=== PATIENT | female | born 1935 | race Caucasian/White ===

== ENCOUNTER 2017-06-03 10:35 | Observation (INO) | payer BC, OTHER ==
[2017-06-03] MEDS ORDERED: ACETAMINOPHEN 1000 MG/100 ML VIAL (NON FORMULARY) IVPB ONE (11:39)
--- NOTE | 2017-06-03 11:45 | PDOC ---
History of Present Illness - General History Source: Patient Exam Limitations: No Limitations - History of Present Illness Initial Comments: 06/03/17 12:57 The patient is a 81 year old female, with a significant past medical history of Asthma, HTN, HLD who presents to the emergency department with L hip pain. Patient reports sudden onset of L hip pain that began 5 days ago with no trauma/ injury to the area. Patient reports constant hip pain, 9/10 in severity, nonradiating. Patient reports taking Motrin however denies any pain relief. Patient is normally ambulatory with walker at baseline however due to the pain the patient has not been able to walk. Patient denies chest pain, headache or dizziness. Patient denies fever, chills, abdominal pain, nausea, vomit, diarrhea or constipation. Patient denies dysuria , frequency, urgency or hematuria. Patient denies sick contacts or recent travel. Allergies: Penicillins Past surgical history: Tubal ligation, hysterectomy, cataract surgery Social history: None PCP: Dr. Enriquez <Nadya Delaney - Last Filed: 06/03/17 12:57> <Sarah Burger - Last Filed: 06/03/17 18:39> - General Chief Complaint: Pain, Acute Stated Complaint: HIP PAIN Time Seen by Provider: 06/03/17 11:13 Past History <Nadya Delaney - Last Filed: 06/03/17 12:57> - Past Medical History Asthma: Yes COPD: No HTN: Yes Hypercholesterolemia: Yes - Surgical History Abdominal Surgery: (TUBAL LIGATION, FIBROID REMOVED) - Immunization History Immunization Up to Date: Yes - Suicide/Smoking/Psychosocial Hx Smoking History: Never smoked Hx Alcohol Use: No Drug/Substance Use Hx: No Substance Use Type: None <Sarah Burger - Last Filed: 06/03/17 18:39> - Past Medical History Allergies/Adverse Reactions: Allergies Allergy/AdvReac Type Severity Reaction Status Date / Time Penicillins Allergy Unknown Verified 06/03/17 10:48 Home Medications: Ambulatory Orders Atenolol [Tenormin -] 25 mg PO DAILY 09/29/15 Atorvastatin Ca [Lipitor] 20 mg PO HS 09/29/15 Baclofen 10 mg PO TID 09/29/15 Fish Oil/Borage/Flax/Om3,6,9 1 [[place] 3-6-9 1,200 mg Softgel] 1,200 mg PO DAILY 09/29/15 Ibuprofen [Motrin -] 400 mg PO TID 09/29/15 Nifedipine [Nifedical Xl] 30 mg PO DAILY 09/29/15 Sennosides [Senna] 8.6 mg PO DAILY 09/29/15 Sertraline HCl 25 mg PO DAILY 09/29/15 Valsartan/Hydrochlorothiazide [Valsartan-Hctz 320-25 mg Tab] 1 each PO DAILY Aspirin [ASA -] 81 mg PO DAILY 06/03/17 Budesonide/Formeterol Fumarate [SYMBICORT 160/4.5mcg -] 1 inh PO BID 06/03/17 Ergocalciferol [Vitamin D2] 50,000 unit PO WEEKLY 06/03/17 Propylene Glycol/Peg 400/Pf [Systane 0.3-0.4% Eye Drops] 1 each OP PRN PRN 06/03 Review of Systems - Review of Systems Able to Perform ROS?: Yes Comments:: 06/03/17 12:57 GENERAL/CONSTITUTIONAL: No fever or chills. No weakness. HEAD, EYES, EARS, NOSE AND THROAT: No change in vision. No ear pain or discharge. No sore throat. GASTROINTESTINAL: No nausea, vomiting, diarrhea or constipation. GENITOURINARY: No dysuria, frequency, or change in urination. CARDIOVASCULAR: No chest pain or shortness of breath. RESPIRATORY: No cough, wheezing, or hemoptysis. MUSCULOSKELETAL: + L hip pain. No joint or muscle swelling or pain. No neck or back pain. SKIN: No rash NEUROLOGIC: No headache, vertigo, loss of consciousness, or change in strength/ sensation. ENDOCRINE: No increased thirst. No abnormal weight change. HEMATOLOGIC/LYMPHATIC: No anemia, easy bleeding, or history of blood clots. ALLERGIC/IMMUNOLOGIC: No hives or skin allergy. <Nadya Delaney - Last Filed: 06/03/17 12:57> *Physical Exam - Vital Signs Last Vital Signs Temp Pulse Resp BP Pulse Ox 98.7 F 108 H 14 140/83 98 06/03/17 10:46 06/03/17 11:31 06/03/17 11:31 06/03/17 10:46 06/03/17 11:31 - Physical Exam Comments: 06/03/17 12:57 GENERAL: Awake, alert, and fully oriented, in no acute distress HEAD: No signs of trauma EYES: PERRLA, EOMI, sclera anicteric, conjunctiva clear ENT: Auricles normal inspection, hearing grossly normal, nares patent, oropharynx clear without exudates. Moist mucosa NECK: Normal ROM, supple, no lymphadenopathy, JVD, or masses LUNGS: Breath sounds equal, clear to auscultation bilaterally. No wheezes, and no crackles HEART: Regular rate and rhythm, normal S1 and S2, no murmurs, rubs or gallops ABDOMEN: Soft, nontender, normoactive bowel sounds. No guarding, no rebound. No masses EXTREMITIES: Normal range of motion, no edema. No clubbing or cyanosis. No cords , erythema. BACK: no midline cervical, thoracic, lumbar ttp. + pinpoint tenderness to superior mid L iliac crest. No bruising, crepitus or deformities NEUROLOGICAL: Normal speech, cranial nerves intact, negative pronator drift, 5/ 5 strength in all 4 extremities, normal sensation to light touch in all 4 extremities, normal cerebellar exam, normal reflexes and tone SKIN: Warm, Dry, normal turgor, no rashes or lesions noted. <Nadya Delaney - Last Filed: 06/03/17 12:57> - Vital Signs Last Vital Signs Temp Pulse Resp BP Pulse Ox 98.7 F 108 H 14 140/83 98 06/03/17 10:46 06/03/17 11:31 06/03/17 11:31 06/03/17 10:46 06/03/17 11:31 <Sarah Burger - Last Filed: 06/03/17 18:39> ED Treatment Course - LABORATORY CBC & Chemistry Diagram: 06/03/17 12:21 06/03/17 12:21 - ADDITIONAL ORDERS Additional order review: 06/03/17 12:21 RBC 4.13 MCV 95.3 MCHC 32.3 RDW 12.3 MPV 9.5 D Neutrophils % 81.5 Lymphocytes % 9.7 D Monocytes % 8.4 Eosinophils % 0.2 Basophils % 0.2 - Medications Given in the ED: ED Medications Discontinued Medications Generic Name Dose Route Start Last Admin Trade Name Freq PRN Reason Stop Dose Admin Acetaminophen 1,000 mg 06/03/17 11:39 06/03/17 12:15 Ofirmev Injection - IVPB 06/03/17 11:40 1,000 mg ONCE ONE Administration <Nadya Delaney - Last Filed: 06/03/17 12:57> - LABORATORY CBC & Chemistry Diagram: 06/03/17 12:21 06/03/17 12:21 - RADIOLOGY Radiology Studies Ordered: Category Date Time Status PELVIS [RAD] Stat Radiology 06/03/17 11:40 Ordered <Sarah Burger - Last Filed: 06/03/17 18:39> Medical Decision Making - Medical Decision Making 06/03/17 11:46 81-year-old female with a history of hypertension presents with 4 days of atraumatic left iliac crest pain, worse today. Pt tachycardic on arrival, possible 2/2 to pain. Iliac crest with ttp on exam. Will obtain basic labs, XR, treat pain, and reassess. 06/03/17 14:39 XR negative. CBC with leukocytosis to 14. UA added, CRP elevated. CT ordered, pt has been ED obs/short stayed due to increased LOS. Discussed with hospitalist Lien Betancourt. 06/03/17 16:13 Pt febrile to 100.6, still unable to bear weight. UA still pending, will admit to obs. 06/03/17 18:39 Pt admitted to obs for further management. Case discussed in detail with admitting physician including history, physical exam and ancillary studies. Admitting physician has assumed care for the patient, will follow all pending diagnostics and will complete the evaluation and treatment. <Sarah Burger - Last Filed: 06/03/17 18:39> *DC/Admit/Observation/Transfer - Attestations Scribe Attestion: 06/03/17 12:57 Documentation prepared by Nadya Delaney, acting as medical numerical control operator for Sarah Burger MD, <Nadya Delaney - Last Filed: 06/03/17 12:57> - Discharge Dispostion Admit: Yes - Attestations Physician Attestion: 06/03/17 18:39 I, Dr. Sarah Burger MD, attest that this document has been prepared under my direction and personally reviewed by me in its entirety. I further attest, that it accurately reflects all work, treatment, procedures and medical decision -making performed by me. <Sarah Burger - Last Filed: 06/03/17 18:39> Diagnosis at time of Disposition: Back pain Qualifiers: Back pain location: low back pain Chronicity: acute Back pain laterality: midline Sciatica presence: without sciatica Qualified Code(s): M54.5 - Low back pain - Referrals Referrals: Tanner Enriquez MD [Primary Care Provider] - - Patient Instructions - Post Discharge Activity
[2017-06-03] MEDS ORDERED: ACETAMINOPHEN INJECTION 100 ML IVPB ONE (11:55)
[2017-06-03 12:34] LABS: BASO % 0.2 % (0-2.0); EOS % 0.2 % (0-4.5); LYMPH # 1.3 (8-40); MCH 30.8 pg (25.7-33.7); MCHC 32.3 g/dl (32.0-36.0); MEAN CELL VOLUME 95.3 fl (80-96); MEAN PLT VOLUME 9.5 fl (7.5-11.1); MONO # 1.2 # (3.8-10.2); NEUT # 11.3 # (42.8-82.8); NEUT % 81.5 % (42.8-82.8); PLATELET COUNT 215 K/MM3 (134-434); RDW 12.3 % (11.6-15.6); WHITE BLOOD COUNT 13.9 K/mm3 (4.0-10.0)
[2017-06-03 13:01] LABS: ALBUMIN 3.6 g/dl (3.4-5.0); ANION GAP 10 (8-16); BILIRUBIN,TOTAL 0.6 mg/dL (0.2-1.0); CALCIUM 9.6 mg/dL (8.5-10.1); CO2 30 mmol/L (21-32); CREATININE 0.6 mg/dL (0.55-1.02); GLUCOSE,RANDOM 114 mg/dL (74-106); SGOT/AST 32 U/L (15-37); SGPT/ALT 42 U/L (12-78)
[2017-06-03 13:02] LABS: ALK PHOS 207 U/L (45-117); TOT PROT 7.8 g/dl (6.4-8.2)
[2017-06-03] MEDS ORDERED: IBUPROFEN 400 MG TABLET (FP) PO ONE ×2 (15:51→15:55)
[2017-06-03 16:37] LABS: URINE APPEARANCE CLOUDY; URINE BILIRUBIN NEGATIVE (NEGATIVE); URINE BLOOD NEGATIVE (NEGATIVE); URINE COLOR YELLOW; URINE GLUCOSE (UA) NEGATIVE (NEGATIVE); URINE KETONE NEGATIVE (NEGATIVE); URINE LEUK ESTERASE NEGATIVE (NEGATIVE); URINE NITRITE NEGATIVE (NEGATIVE); URINE PROTEIN NEGATIVE (NEGATIVE); URINE UROBILINOGEN NEGATIVE mg/dL (0.2-1.0)
--- NOTE | 2017-06-03 17:44 | HP ---
CHIEF COMPLAINT: BILATERAL hip pain with right leg radiculopathy x 1 month PCP: Dr. Enriquez HISTORY OF PRESENT ILLNESS: 81 year-old woman with a PMH significant for HTN, HLD, asthma, multilevel lumbar DDD, moderate to marked central canal stenosis, and L3 compression fracture with bilateral L3 nerve root impingement since 2015. Patient presents to the ED today with complaint of worsening bilateral hip pain x 1 month. About two weeks ago, she went to her PCP, Dr. Enriquez, who gave the patient two injections in her back which patient thinks were steroid shots. The injections did not help and for the past week patient has been essentially bedridden and cannot walk or weight bear secondary to pain. Patient denies trauma or recent falls. She denies fever, sweats, chills. She denies cough or upper respiratory symptoms. She denies n/v/d/c. 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 Patient's mental status is at baseline. ER course was notable for: (1) T 100.6, p 124, WBC 13.9 (2) Alk phos 207 (3) Xray and CT imaging of pelvis negative for acute process Recent Travel: No PAST MEDICAL HISTORY: Hypertension Hyperlipidemia Asthma Multilevel lumbar DDD Moderate to severe central canal stenosis L3 compression fracture with bilateral L3 nerve root impingement (2016) PAST SURGICAL HISTORY: Tubal ligation Hysterectomy Cataract surgery Social History: Smoking: no Alcohol: no Drugs: no Family History: non-contributory Allergies Penicillins Allergy (Unknown, Verified 06/03/17 10:48) HOME MEDICATIONS: Home Medications Medication Instructions Recorded Atenolol [Tenormin -] 25 mg PO DAILY 09/29/15 Atorvastatin Ca [Lipitor] 20 mg PO HS 09/29/15 Baclofen 10 mg PO TID 09/29/15 Fish Oil/Borage/Flax/Om3,6,9 1 1,200 mg PO DAILY 09/29/15 [[place] 3-6-9 1,200 mg Softgel] Ibuprofen [Motrin -] 400 mg PO TID 09/29/15 Nifedipine [Nifedical Xl] 30 mg PO DAILY 09/29/15 Sennosides [Senna] 8.6 mg PO DAILY 09/29/15 Sertraline HCl 25 mg PO DAILY 09/29/15 Valsartan/Hydrochlorothiazide 1 each PO DAILY 09/29/15 [Valsartan-Hctz 320-25 mg Tab] Aspirin [ASA -] 81 mg PO DAILY 06/03/17 Budesonide/Formeterol Fumarate 1 inh PO BID 06/03/17 [SYMBICORT 160/4.5mcg -] Ergocalciferol [Vitamin D2] 50,000 unit PO WEEKLY 06/03/17 Propylene Glycol/Peg 400/Pf 1 each OP PRN PRN 06/03/17 [Systane 0.3-0.4% Eye Drops] REVIEW OF SYSTEMS CONSTITUTIONAL: Absent: fever, chills, diaphoresis, generalized weakness, malaise, loss of appetite, weight change HEENT: Absent: rhinorrhea, nasal congestion, throat pain, throat swelling, difficulty swallowing, mouth swelling, ear pain, eye pain, visual changes CARDIOVASCULAR: Absent: chest pain, syncope, palpitations, irregular heart rate, lightheadedness , peripheral edema RESPIRATORY: Absent: cough, shortness of breath, dyspnea with exertion, orthopnea, wheezing, stridor, hemoptysis GASTROINTESTINAL: Absent: abdominal pain, abdominal distension, nausea, vomiting, diarrhea, constipation, melena, hematochezia GENITOURINARY: Absent: dysuria, frequency, urgency, hesitancy, hematuria, flank pain, genital pain MUSCULOSKELETAL: Present: bilateral hip pain with RLE radiculopathy Absent: myalgia, arthralgia, joint swelling, back pain, neck pain SKIN: Absent: rash, itching, pallor HEMATOLOGIC/IMMUNOLOGIC: Absent: easy bleeding, easy bruising, lymphadenopathy, frequent infections ENDOCRINE: Absent: unexplained weight gain, unexplained weight loss, heat intolerance, cold intolerance NEUROLOGIC: Absent: headache, focal weakness or paresthesias, dizziness, unsteady gait, seizure, mental status changes, bladder or bowel incontinence PSYCHIATRIC: Absent: anxiety, depression, suicidal or homicidal ideation, hallucinations. PHYSICAL EXAMINATION Vital Signs - 24 hr 06/03/17 06/03/17 06/03/17 10:46 11:31 16:15 Temperature 98.7 F 100.6 F H Pulse Rate 124 H Pulse Rate [ 108 H Apical] Respiratory 14 16 Rate Blood Pressure 140/83 O2 Sat by Pulse 97 98 98 Oximetry (%) GENERAL: Awake, alert, and fully oriented, in no acute distress. HEAD: Normal with no signs of trauma. EYES: Pupils equal, round and reactive to light, extraocular movements intact, sclera anicteric, conjunctiva clear. No lid lag. EARS, NOSE, THROAT: Ears normal, nares patent, oropharynx clear without exudates. Moist mucous membranes. NECK: Normal range of motion, supple without lymphadenopathy, JVD, or masses. LUNGS: Breath sounds equal, clear to auscultation bilaterally. No wheezes, and no crackles. No accessory muscle use. HEART: Regular rate and rhythm, normal S1 and S2 without murmur, rub or gallop. ABDOMEN: Soft, nontender, not distended, normoactive bowel sounds, no guarding, no rebound, no masses. No hepatomegaly or splenomegaly. MUSCULOSKELETAL: Normal range of motion at all joints. No bony deformities or tenderness. No CVA tenderness. UPPER EXTREMITIES: 2+ pulses, warm, well-perfused. No cyanosis. No clubbing. No peripheral edema. LOWER EXTREMITIES: 2+ pulses, warm, well-perfused. No calf tenderness. No peripheral edema. 5/5 motor and sensory bilateral lower extremities; SLR bilaterally to 45 degrees; no focal tenderness elicited of bilateral hips on this exam; no erythema, no joint swelling, no warmth NEUROLOGICAL: Cranial nerves II-XII intact. Normal speech. Gait not observed. Laboratory Results - last 24 hr 06/03/17 06/03/17 06/03/17 12:05 12:05 12:21 WBC 13.9 H D RBC 4.13 Hgb 12.7 Hct 39.4 MCV 95.3 MCH 30.8 MCHC 32.3 RDW 12.3 Plt Count 215 D MPV 9.5 D Neutrophils % 81.5 Lymphocytes % 9.7 D Monocytes % 8.4 Eosinophils % 0.2 Basophils % 0.2 ESR 62 H Sodium Potassium Chloride Carbon Dioxide Anion Gap BUN Creatinine Creat Clearance w eGFR Random Glucose Calcium Total Bilirubin AST ALT Alkaline Phosphatase C-Reactive Protein 1.8 H Total Protein Albumin Urine Color Urine Appearance Urine pH Ur Specific [place] Urine Protein Urine Glucose (UA) Urine Ketones Urine Blood Urine Nitrite Urine Bilirubin Urine Urobilinogen 06/03/17 06/03/17 12:21 16:15 WBC RBC Hgb Hct MCV MCH MCHC RDW Plt Count MPV Neutrophils % Lymphocytes % Monocytes % Eosinophils % Basophils % ESR Sodium 142 Potassium 3.7 Chloride 102 Carbon Dioxide 30 Anion Gap 10 BUN 18 D Creatinine 0.6 D Creat Clearance w eGFR > 60 Random Glucose 114 H D Calcium 9.6 Total Bilirubin 0.6 D AST 32 ALT 42 Alkaline Phosphatase 207 H D C-Reactive Protein Total Protein 7.8 D Albumin 3.6 D Urine Color Yellow Urine Appearance Cloudy Urine pH 7.0 D Ur Specific [place] 1.013 Urine Protein Negative Urine Glucose (UA) Negative Urine Ketones Negative Urine Blood Negative Urine Nitrite Negative Urine Bilirubin Negative Urine Urobilinogen Negative ASSESSMENT/PLAN 81 year-old woman with a PMH significant for HTN, HLD, asthma, multilevel lumbar DDD, moderate to marked central canal stenosis, and L3 compression fracture with bilateral L3 nerve root impingement since 2016. Placed on observation for worsening bilateral hip pain and RLE radiculopathy. Concern for SIRS criteria without definitive source of infection. SIRS --Tm 100.6, p 124, WBC 13.9 --r/o infectious etiology --CXR clear, UA negative, blood cultures pending; no obvious source of infection --patient states she had two cortisone shots in her spine two weeks ago --will get CT chest, abdomen, pelvis, lumbar spine to identify possible source of infection/epidural abscess? --r/o PE --Wells score 3.0, moderate risk; US LE negative for DVT, d-dimer pending --will get CTA chest with PE protocol Bilateral hip pain RLE radiculopathy h/o L3 compression fracture with bilateral L3 nerve root impingement --exam today non-focal; motor and sensory intact BLE; Xray and CT pelvis imaging today negative for acute process --compression fracture seen on 2016 CT LSS scan; question whether pathologic (see radiology report) --CT LSS pending --continue baclofen --no NSAIDS Elevated alk phos --ggt pending Hypertension --continue atenolol, nifedipine, valsartan, HCTZ Hyperlipidemia --continue Lipitor Asthma --stable --continue Symbicort FEN Fluids: PO intake adequate Electrolytes: replete as indicated Nutrition: low sodium DVT prophylaxis: subq heparin Physical therapy evaluation Dispo: requires continued observation. Full code. Visit type - Emergency Visit Emergency Visit: Yes ED Registration Date: 06/03/17 Care time: The patient presented to the Emergency Department on the above date and was hospitalized for further evaluation of their emergent condition. - New Patient This patient is new to me today: Yes Date on this admission: 06/04/17 - Critical Care Critical Care patient: No
[2017-06-03 20:43] LABS: URINE LEUK ESTERASE Negative (NEGATIVE)
[2017-06-03] MEDS ORDERED: ATORVASTATIN CA 40 MG TABLET (FP) ONE (22:15)
[2017-06-03] MEDS ORDERED: BACLOFEN 10 MG TABLET (FP) ONE (22:16)
[2017-06-03] MEDS: ATORVASTATIN CA 20 MG TABLET (FP) PO SCH (23:00)
[2017-06-03] MEDS: BACLOFEN 10 MG TABLET (FP) PO SCH (23:00)
[2017-06-03] MEDS ORDERED: ARTIFICIAL TEARS (POLYVINYL ALCOHOL 1.4%) OPTH DROPS OU PRN (23:52)
[2017-06-04] MEDS ORDERED: HEPARIN NA (PORCINE) 5,000 UNITS/ML 1ML VIAL SQ SCH (06:00)
[2017-06-04] MEDS: BACLOFEN 10 MG TABLET (FP) PO SCH ×3 (06:07→22:12)
[2017-06-04 08:14] LABS: BASO % 0.2 % (0-2.0); EOS # 0.1 # (0-4.5); EOS % 0.9 % (0-4.5); LYMPH # 1.8 (8-40); MCH 31.5 pg (25.7-33.7); MCHC 32.7 g/dl (32.0-36.0); MEAN CELL VOLUME 96.4 fl (80-96); MEAN PLT VOLUME 9.7 fl (7.5-11.1); MONO # 0.9 # (3.8-10.2); NEUT # 6.2 # (42.8-82.8); NEUT % 68.6 % (42.8-82.8); PLATELET COUNT 198 K/MM3 (134-434); RDW 12.4 % (11.6-15.6)
[2017-06-04 08:34] VITALS: BMI 23.6
[2017-06-04 08:38] LABS: ANION GAP 6 (8-16); CALCIUM 9.2 mg/dL (8.5-10.1); CO2 32 mmol/L (21-32); GLUCOSE,RANDOM 100 mg/dL (74-106); MAGNESIUM 2.3 mg/dL (1.8-2.4)
[2017-06-04 08:42] LABS: ALK PHOS 150 U/L (45-117); BILIRUBIN,TOTAL 1.1 mg/dL (0.2-1.0); CREATININE 0.6 mg/dL (0.55-1.02); PHOSPHOROUS 3.4 mg/dL (2.5-4.9); SGOT/AST 23 U/L (15-37); SGPT/ALT 34 U/L (12-78); TOT PROT 6.7 g/dl (6.4-8.2)
--- NOTE | 2017-06-04 08:56 | PN ---
Physical Exam: SUBJECTIVE: Patient seen and examined at bedside. Granddaughter present and served as finish painter. No pain when lying still, same pain with movement. OBJECTIVE: Vital Signs Period Temp Pulse Resp BP Sys/High Pulse Ox Last 24 Hr 97.9 F-100.6 F 64-124 14-20 139-143/74-84 97-98 GENERAL: Awake, alert, and fully oriented, in no acute distress. LUNGS: Breath sounds equal, clear to auscultation bilaterally. No wheezes, and no crackles. No accessory muscle use. HEART: Regular rate and rhythm, normal S1 and S2 without murmur, rub or gallop. ABDOMEN: Soft, nontender, not distended, normoactive bowel sounds, no guarding, no rebound, no masses. No hepatomegaly or splenomegaly. UPPER EXTREMITIES: 2+ pulses, warm, well-perfused. No cyanosis. No clubbing. No peripheral edema. LOWER EXTREMITIES: 2+ pulses, warm, well-perfused. No calf tenderness. No peripheral edema. 5/5 motor and sensory bilateral lower extremities; SLR bilaterally to 45 degrees; no focal tenderness elicited of bilateral hips on this exam; no erythema, no joint swelling, no warmth NEUROLOGICAL: Cranial nerves II-XII intact. Normal speech. Gait not observed. Laboratory Results - last 24 hr 06/03/17 06/03/17 06/03/17 12:05 12:05 12:21 WBC 13.9 H D RBC 4.13 Hgb 12.7 Hct 39.4 MCV 95.3 MCH 30.8 MCHC 32.3 RDW 12.3 Plt Count 215 D MPV 9.5 D Neutrophils % 81.5 Lymphocytes % 9.7 D Monocytes % 8.4 Eosinophils % 0.2 Basophils % 0.2 ESR 62 H D-Dimer Sodium Potassium Chloride Carbon Dioxide Anion Gap BUN Creatinine Creat Clearance w eGFR Random Glucose Calcium Phosphorus Magnesium Total Bilirubin GGT AST ALT Alkaline Phosphatase C-Reactive Protein 1.8 H Total Protein Albumin Lipase Urine Color Urine Appearance Urine pH Ur Specific [place] Urine Protein Urine Glucose (UA) Urine Ketones Urine Blood Urine Nitrite Urine Bilirubin Urine Urobilinogen Ur Leukocyte Esterase 06/03/17 06/03/17 06/03/17 12:21 12:30 16:15 WBC RBC Hgb Hct MCV MCH MCHC RDW Plt Count MPV Neutrophils % Lymphocytes % Monocytes % Eosinophils % Basophils % ESR D-Dimer Sodium 142 Potassium 3.7 Chloride 102 Carbon Dioxide 30 Anion Gap 10 BUN 18 D Creatinine 0.6 D Creat Clearance w eGFR > 60 Random Glucose 114 H D Calcium 9.6 Phosphorus Magnesium Total Bilirubin 0.6 D GGT 40 AST 32 ALT 42 Alkaline Phosphatase 207 H D C-Reactive Protein Total Protein 7.8 D Albumin 3.6 D Lipase Urine Color Yellow Urine Appearance Cloudy Urine pH 7.0 D Ur Specific [place] 1.013 Urine Protein Negative Urine Glucose (UA) Negative Urine Ketones Negative Urine Blood Negative Urine Nitrite Negative Urine Bilirubin Negative Urine Urobilinogen Negative Ur Leukocyte Esterase Negative 06/04/17 06/04/17 06/04/17 02:07 06:50 06:50 WBC 9.0 D RBC 3.63 Hgb 11.4 D Hct 35.0 MCV 96.4 H MCH 31.5 MCHC 32.7 RDW 12.4 Plt Count 198 MPV 9.7 Neutrophils % 68.6 Lymphocytes % 19.9 D Monocytes % 10.4 H Eosinophils % 0.9 D Basophils % 0.2 ESR D-Dimer 2710 H Sodium 142 Potassium 3.4 L Chloride 104 Carbon Dioxide 32 Anion Gap 6 L BUN 22 H D Creatinine 0.6 Creat Clearance w eGFR > 60 Random Glucose 100 Calcium 9.2 Phosphorus 3.4 Magnesium 2.3 Total Bilirubin 1.1 H D GGT AST 23 D ALT 34 Alkaline Phosphatase 150 H D C-Reactive Protein Total Protein 6.7 Albumin 3.0 L Lipase 106 Urine Color Urine Appearance Urine pH Ur Specific [place] Urine Protein Urine Glucose (UA) Urine Ketones Urine Blood Urine Nitrite Urine Bilirubin Urine Urobilinogen Ur Leukocyte Esterase Active Medications Generic Name Dose Route Start Last Admin Trade Name Freq PRN Reason Stop Dose Admin Artificial Tears 1 drop 06/03/17 23:52 Artificial Tears OU BID PRN DRY EYES Aspirin 81 mg 06/04/17 10:00 Asa - PO DAILY JACLYN Atenolol 25 mg 06/04/17 10:00 Tenormin - PO DAILY JACLYN Atorvastatin Calcium 20 mg 06/03/17 22:00 06/03/17 23:00 Lipitor - PO 20 mg HS JALCYN Administration Baclofen 10 mg 06/03/17 22:00 06/04/17 06:07 Lioresal - PO 10 mg TID JACLYN Administration Budesonide/Formoterol Fumarate 1 puff 06/04/17 10:00 Symbicort 160/4.5mcg - IH BID JACLYN Heparin Sodium (Porcine) 5,000 unit 06/04/17 06:00 06/04/17 06:07 Heparin - SQ 5,000 unit TID JACLYN Administration Hydrochlorothiazide 25 mg 06/04/17 10:00 Hctz - PO DAILY JACLYN Nifedipine 30 mg 06/04/17 10:00 Procardia Xl - PO DAILY JACLYN Potassium Chloride 40 meq 06/04/17 09:00 K-Dur - PO 06/04/17 15:01 Q6H JACLYN Sertraline HCl 25 mg 06/04/17 10:00 Zoloft - PO DAILY JACLYN Valsartan 320 mg 06/04/17 10:00 Diovan - PO DAILY JACLYN ASSESSMENT/PLAN: 81 year-old woman with a PMH significant for HTN, HLD, asthma, multilevel lumbar DDD, moderate to marked central canal stenosis, and L3 compression fracture with bilateral L3 nerve root impingement since 2015. Placed on observation for worsening bilateral hip pain and RLE radiculopathy. Concern for SIRS criteria without definitive source of infection. SIRS --fever, tachycardia, and leukocytosis have all resolved --CXR clear, UA negative, cultures negative to date, no CT evidence of epidural abscess --CTA negative for PE --CTAP: gallbladder appears septated; will get US; patient denies abdominal pain, nausea, biliary symptoms Bilateral hip pain RLE radiculopathy Multiple compression fractures --06/04 CT LSS: L3 and L4 compression fractures as seen previously; new moderate L5 compression fracture --MRI LSS ordered --ortho consult requested --PT evaluation Elevated alk phos --trending down --GGT wnl Hypertension --continue atenolol, nifedipine, valsartan, HCTZ Hyperlipidemia --continue Lipitor Asthma --stable --continue Symbicort FEN Fluids: PO intake adequate Electrolytes: replete as indicated Nutrition: low sodium DVT prophylaxis: subq heparin Physical therapy evaluation Dispo: requires continued observation. Full code. Visit type - Emergency Visit Emergency Visit: Yes ED Registration Date: 06/03/17 Care time: The patient presented to the Emergency Department on the above date and was hospitalized for further evaluation of their emergent condition. - New Patient This patient is new to me today: No - Critical Care Critical Care patient: No
[2017-06-04] MEDS ORDERED: PT OWN MED DRAWER 7, Y5N ONE ×3 (09:47→22:19)
[2017-06-04] MEDS ORDERED: PATIENT'S OWN MEDICATION (NON-FORMULARY) (Valsartan/Hydrochlorothiazide [Valsartan-Hctz 32 PO SCH (10:00)
[2017-06-04] MEDS ORDERED: HEPARIN NA (PORCINE) 5,000 UNITS/ML 1ML VIAL IVPUSH PRN ×2 (10:23)
[2017-06-04] MEDS ORDERED: HEPARIN INFUSION - 25,000 UNITS/500 ML INFUS.BAG IVPB SCH (10:30)
[2017-06-04] MEDS: SERTRALINE HCL 25 MG TABLET (FP) PO SCH (11:37)
[2017-06-04] MEDS: VALSARTAN 160 MG TABLET (UD) PO SCH (11:37)
[2017-06-04] MEDS: ASPIRIN 81 MG CHEWABLE TABLETS PO SCH (11:37)
[2017-06-04] MEDS: NIFEdipine E.R. 30 MG TABLET (FP) PO SCH (11:37)
[2017-06-04] MEDS: HYDROCHLOROTHIAZIDE 25 MG TABLET (FP) PO SCH (11:37)
[2017-06-04] MEDS: ATENOLOL 25 MG TABLET (FP) PO SCH (11:38)
[2017-06-04] MEDS: POTASSIUM CHLORIDE TABS 20 MEQ TABLET.ER (FP) PO SCH ×2 (11:41→15:46)
[2017-06-04] MEDS ORDERED: ENOXAPARIN NA (PORCINE) 60 MG/0.6 ML DISP.SYRIN SQ SCH (12:00)
[2017-06-04] MEDS: BUDESONIDE/FORMETEROL FUMARATE 160/4.5 mcg INHALER IH SCH ×2 (15:46→22:12)
--- NOTE | 2017-06-04 16:56 | EKG ---
Test Reason : Blood Pressure : / mmHG Vent. Rate : 055 BPM Atrial Rate : 055 BPM P-R Int : 258 ms QRS Dur : 072 ms QT Int : 412 ms P-R-T Axes : 065 006 -10 degrees QTc Int : 394 ms SINUS BRADYCARDIA WITH 1ST DEGREE A-V BLOCK POSSIBLE INFERIOR INFARCT (CITED ON OR BEFORE 29-SEP-2015) ABNORMAL ECG WHEN COMPARED WITH ECG OF 03-JUN-2017 19:19, VENT. RATE HAS DECREASED BY 38 BPM QT HAS SHORTENED Confirmed by IRIS MORENO MD ([id number]) on 06/04/2017 4:56:28 PM Referred By: Marielena ROTHMAN Confirmed By:IRIS MORENO MD
[2017-06-04] MEDS: ATORVASTATIN CA 20 MG TABLET (FP) PO SCH (22:12)
--- NOTE | 2017-06-04 22:53 | CONS ---
DATE OF CONSULTATION: 06/04/2017 CHIEF COMPLAINT: Difficulty ambulating. HISTORY OF PRESENT ILLNESS: This is a pleasant 81-year-old woman. She is being seen with her granddaughter at the bedside who is helping to translate. She is complaining of some back pain and also increasing difficulty ambulating. She saw her primary previously who gave her some injections, which sound like trigger point injections. The pain is felt around the back into the lateral aspect of the hip joints. There is no groin pain on either side. She denies any numbness or tingling. She denies any bowel or bladder symptoms. She has no general symptoms of malaise. She has had a history of previous compression fractures in the lumbar spine, treated with bracing. PAST MEDICAL HISTORY: Includes hypertension, hyperlipidemia, asthma, lumbar degenerative disease and compression fracture along with stenosis. PAST SURGICAL HISTORY: Includes tubal ligation, hysterectomy, cataract surgery. SOCIAL HISTORY: Denies alcohol, tobacco, or drugs. FAMILY HISTORY: Noncontributory. ALLERGIES: PENICILLIN. MEDICATIONS: Reviewed and as in the chart. REVIEW OF SYSTEMS: Negative for fever, chills, or malaise. No rhinorrhea, congestion, or throat pain. No chest pain, palpitations, or lightheadedness. No cough, shortness of breath, or dyspnea. No abdominal pain, distention, or nausea. No dysuria, frequency, or urgency. PHYSICAL EXAMINATION: General: This is an elderly female, in no acute distress. Vital signs: At present, she is afebrile and her vital signs are stable. She did have a low grade 100.6 temperature only noted in the emergency department. Musculoskeletal: Examination of the lumbar spine demonstrates no gross deformity. There is mild spasm to both sides. She has minimal tenderness to the lumbar paraspinal region. The SI joints are nontender. Greater trochanter is nontender. She has no pain with log roll or range of motion of the hips. Nontender to the knees. Nontender at the ankles. She has negative straight leg raise bilaterally. Bilateral ankle dorsiflexion is 5/5. She does have some weakness, though there is some arthritic change of EHL on both sides. FHL and gastrocsoleus complex are also 5/5. Sensation is grossly intact to light touch, 2+ DP pulses. RADIOLOGY: Images and reports are reviewed of the lumbar spine as well as the hips. There is minimal degenerative change of the hips. She does have significant degenerative change to the lumbar spine. There is compression deformity of the L5 vertebral body. There is anterolisthesis of L4 on L5, grade 1. There is chronic appearing compression deformity to L3 and some wedging of L2 with surrounding degenerative change indicative of chronicity as well. There is a slight listhesis at the L3-L4 level as well. ASSESSMENT: Lumbar degenerative disease, stenosis. PLAN: I reviewed the findings with the patient and her granddaughter. We discussed that this episode that she is having now is most likely an aggravation of the underlying degenerative disease, compression disease, and spinal stenosis that has been known to her. We discussed that in general for elderly patients, spinal stenosis as well as compression fractures are best treated conservatively. I have recommended that she use her spine brace, which she already has at home. She will participate in physical therapy. Should she be progressively deteriorating, MRI could be considered although I do not believe that it is necessary at this point. She may follow up as an outpatient with Dr. Villatoro. IMELDA HALL M.D. [id number]
[2017-06-05] MEDS: BACLOFEN 10 MG TABLET (FP) PO SCH ×3 (05:24→22:14)
[2017-06-05] MEDS: HYDROCHLOROTHIAZIDE 25 MG TABLET (FP) PO SCH (10:03)
[2017-06-05] MEDS: SERTRALINE HCL 25 MG TABLET (FP) PO SCH (10:03)
[2017-06-05] MEDS: NIFEdipine E.R. 30 MG TABLET (FP) PO SCH (10:03)
[2017-06-05] MEDS: VALSARTAN 160 MG TABLET (UD) PO SCH (10:03)
[2017-06-05] MEDS: ASPIRIN 81 MG CHEWABLE TABLETS PO SCH (10:03)
[2017-06-05] MEDS: BUDESONIDE/FORMETEROL FUMARATE 160/4.5 mcg INHALER IH SCH ×2 (10:04→22:14)
[2017-06-05] MEDS: ENOXAPARIN NA (PORCINE) 40 MG/0.4 ML DISP.SYRIN SQ SCH (10:04)
[2017-06-05] MEDS: ATENOLOL 25 MG TABLET (FP) PO SCH (10:04)
[2017-06-05] MEDS ORDERED: POTASSIUM CHLORIDE ORAL LIQUID 20 MEQ/15 ML PO ONE (17:32)
--- NOTE | 2017-06-05 18:00 | PN ---
Progress Note (short form) - Note Progress Note: currently asymptomatic. states she has no pain when she lays in bed. has not gotten out of bed since arrival due to fear of pain. denies CP, SOB, fever, chills, N/V/C/D Current Medications Generic Name Dose Route Start Last Admin Trade Name Freq PRN Reason Stop Dose Admin Artificial Tears 1 drop 06/03/17 23:52 Artificial Tears OU BID PRN DRY EYES Aspirin 81 mg 06/04/17 10:00 06/05/17 10:03 Asa - PO 81 mg DAILY JACLYN Administration Atenolol 25 mg 06/04/17 10:00 06/05/17 10:04 Tenormin - PO 25 mg DAILY JACLYN Administration Atorvastatin Calcium 20 mg 06/03/17 22:00 06/04/17 22:12 Lipitor - PO 20 mg HS JACLYN Administration Baclofen 10 mg 06/03/17 22:00 06/05/17 14:13 Lioresal - PO 10 mg TID JACLYN Administration Budesonide/Formoterol Fumarate 1 puff 06/04/17 10:00 06/05/17 10:04 Symbicort 160/4.5mcg - IH 1 puff BID JACLYN Administration Enoxaparin Sodium 40 mg 06/05/17 10:00 06/05/17 10:04 Lovenox - SQ 40 mg DAILY JACLYN Administration Hydrochlorothiazide 25 mg 06/04/17 10:00 06/05/17 10:03 Hctz - PO 25 mg DAILY JACLYN Administration Nifedipine 30 mg 06/04/17 10:00 06/05/17 10:03 Procardia Xl - PO 30 mg DAILY JACLYN Administration Potassium Chloride 20 meq 06/05/17 17:32 Potassium Chloride Oral Liquid PO 06/05/17 17:33 ONCE ONE Sertraline HCl 25 mg 06/04/17 10:00 06/05/17 10:03 Zoloft - PO 25 mg DAILY JACLYN Administration Valsartan 320 mg 06/04/17 10:00 06/05/17 10:03 Diovan - PO 320 mg DAILY JACLYN Administration Last Vital Signs Temp Pulse Resp BP Pulse Ox 98.6 F 61 18 124/57 98 06/05/17 14:53 06/05/17 14:53 06/05/17 14:53 06/05/17 14:53 06/05/17 10:00 General NAD CV S1 S2+ Lungs CTA B/L anteriorly ABdomen soft NT/ND negative horn sign Extremities no pedal edema CBCD WBC 9.0 K/mm3 (4.0-10.0) D 06/04/17 06:50 RBC 3.63 M/mm3 (3.60-5.2) 06/04/17 06:50 Hgb 11.4 GM/dL (10.7-15.3) D 06/04/17 06:50 Hct 35.0 % (32.4-45.2) 06/04/17 06:50 MCV 96.4 fl (80-96) H 06/04/17 06:50 MCHC 32.7 g/dl (32.0-36.0) 06/04/17 06:50 RDW 12.4 % (11.6-15.6) 06/04/17 06:50 Plt Count 198 K/MM3 (134-434) 06/04/17 06:50 MPV 9.7 fl (7.5-11.1) 06/04/17 06:50 CMP Sodium 142 mmol/L (136-145) 06/04/17 06:50 Potassium 3.4 mmol/L (3.5-5.1) L 06/04/17 06:50 Chloride 104 mmol/L (98-107) 06/04/17 06:50 Carbon Dioxide 32 mmol/L (21-32) 06/04/17 06:50 Anion Gap 6 (8-16) L 06/04/17 06:50 BUN 22 mg/dL (7-18) H D 06/04/17 06:50 Creatinine 0.6 mg/dL (0.55-1.02) 06/04/17 06:50 Creat Clearance w eGFR > 60 (>60) 06/04/17 06:50 Calcium 9.2 mg/dL (8.5-10.1) 06/04/17 06:50 Total Bilirubin 1.1 mg/dL (0.2-1.0) H D 06/04/17 06:50 AST 23 U/L (15-37) D 06/04/17 06:50 ALT 34 U/L (12-78) 06/04/17 06:50 Alkaline Phosphatase 150 U/L (45-117) H D 06/04/17 06:50 Total Protein 6.7 g/dl (6.4-8.2) 06/04/17 06:50 Albumin 3.0 g/dl (3.4-5.0) L 06/04/17 06:50 Assessment and Plan 81 year-old woman with a PMH significant for HTN, HLD, asthma, multilevel lumbar DDD, moderate to marked central canal stenosis, and L3 compression fracture with bilateral L3 nerve root impingement since 2016. Placed on observation for worsening bilateral hip pain and RLE radiculopathy. Concern for SIRS criteria without definitive source of infection. 1. Intractable hip pain- MRI confirming new L5 compression fracture with old L2- L3 compression fracture with disc herniation,. has some swelling of the bone but low concern for OM at this time. pt has declined surgery and opting for medical management. PT assessment tomorrow. pt will likely benefit from DIAZ and pain management. as per family who is present at bedside she would prefer to go home with home PT. she has 24H aid at home to assist. 2. SIRS- no clear source of infection. CTA negative for PE. doppler negative for dvt. liekly all stress induced. no indication for abx will hold at this time. ESR/CRP slightly elevated not specific for OM. 3. Elevated alk phos- ggt negative. CT abdomen showing septated GB. u/s pending. alk phos is trending down. will no transaminitis or abdominal pain. f/ u u/s 4. HTN- controlled. 5. Dyslipidemia- on statin 6. Asthma- no signs of exacerbation. cont inhalers 7. DVT ppx- hep sq 8. d/c planning in the AM. awaiting PT assessment. will need SW to speak with family but appears they prefer to go home with home PT. spoke with family at bedside whom speak Malay. all questions answered. verbalized understanding and agreement. aware pt will leave tomorrow. Visit type - Emergency Visit Emergency Visit: Yes ED Registration Date: 06/03/17 Care time: The patient presented to the Emergency Department on the above date and was hospitalized for further evaluation of their emergent condition. - New Patient This patient is new to me today: Yes Date on this admission: 06/05/17 - Critical Care Critical Care patient: No - Discharge Referral Referred to [facility] Med P.C.: No
[2017-06-05] MEDS ORDERED: PT OWN MED DRAWER 7, Y5N ONE ×3 (22:13→23:06)
[2017-06-05] MEDS: ATORVASTATIN CA 20 MG TABLET (FP) PO SCH (22:14)
[2017-06-06] MEDS: BACLOFEN 10 MG TABLET (FP) PO SCH ×2 (05:31→14:06)
[2017-06-06 08:17] LABS: MCH 31.5 pg (25.7-33.7); MCHC 32.7 g/dl (32.0-36.0); MEAN CELL VOLUME 96.2 fl (80-96); MEAN PLT VOLUME 9.6 fl (7.5-11.1); PLATELET COUNT 185 K/MM3 (134-434); RDW 12.8 % (11.6-15.6); WHITE BLOOD COUNT 8.5 K/mm3 (4.0-10.0)
[2017-06-06 08:38] LABS: ALBUMIN 2.9 g/dl (3.4-5.0); ANION GAP 8 (8-16); BILIRUBIN,TOTAL 0.7 mg/dL (0.2-1.0); CALCIUM 9.1 mg/dL (8.5-10.1); CO2 28 mmol/L (21-32); CREATININE 0.7 mg/dL (0.55-1.02); GLUCOSE,RANDOM 97 mg/dL (74-106); SGOT/AST 33 U/L (15-37); SGPT/ALT 41 U/L (12-78); TOT PROT 6.4 g/dl (6.4-8.2)
[2017-06-06 08:39] LABS: ALK PHOS 132 U/L (45-117)
[2017-06-06] MEDS ORDERED: PT OWN MED DRAWER 7, Y5N ONE (10:59)
[2017-06-06] MEDS: VALSARTAN 160 MG TABLET (UD) PO SCH (11:04)
[2017-06-06] MEDS: NIFEdipine E.R. 30 MG TABLET (FP) PO SCH (11:04)
[2017-06-06] MEDS: ASPIRIN 81 MG CHEWABLE TABLETS PO SCH (11:04)
[2017-06-06] MEDS: HYDROCHLOROTHIAZIDE 25 MG TABLET (FP) PO SCH (11:04)
[2017-06-06] MEDS: ENOXAPARIN NA (PORCINE) 40 MG/0.4 ML DISP.SYRIN SQ SCH (11:05)
[2017-06-06] MEDS: BUDESONIDE/FORMETEROL FUMARATE 160/4.5 mcg INHALER IH SCH (11:05)
[2017-06-06] MEDS: ATENOLOL 25 MG TABLET (FP) PO SCH (11:05)
[2017-06-06] MEDS: SERTRALINE HCL 25 MG TABLET (FP) PO SCH (11:06)
--- NOTE | 2017-06-06 14:11 | PN ---
Physical Exam: SUBJECTIVE: Patient seen and examined OBJECTIVE: Vital Signs Period Temp Pulse Resp BP Sys/High Pulse Ox Last 24 Hr 98 F-98.6 F 60-63 16-18 100-124/57-63 98-98 GENERAL: The patient is awake, alert, and fully oriented, in no acute distress. HEAD: Normal with no signs of trauma. EYES: PERRL, extraocular movements intact, sclera anicteric, conjunctiva clear. No ptosis. ENT: Ears normal, nares patent, oropharynx clear without exudates, moist mucous membranes. NECK: Trachea midline, full range of motion, supple. LUNGS: Breath sounds equal, clear to auscultation bilaterally, no wheezes, no crackles, no accessory muscle use. HEART: Regular rate and rhythm, S1, S2 without murmur, rub or gallop. ABDOMEN: Soft, nontender, nondistended, normoactive bowel sounds, no guarding, no rebound, no hepatosplenomegaly, no masses. EXTREMITIES: 2+ pulses, warm, well-perfused, no edema. NEUROLOGICAL: Cranial nerves II through XII grossly intact. Normal speech, gait not observed. PSYCH: Normal mood, normal affect. SKIN: Warm, dry, normal turgor, no rashes or lesions noted Laboratory Results - last 24 hr 06/06/17 06/06/17 06:35 06:35 WBC 8.5 RBC 3.48 L Hgb 11.0 Hct 33.5 MCV 96.2 H MCH 31.5 MCHC 32.7 RDW 12.8 Plt Count 185 MPV 9.6 Sodium 142 Potassium 3.8 Chloride 106 Carbon Dioxide 28 Anion Gap 8 BUN 24 H Creatinine 0.7 Creat Clearance w eGFR > 60 Random Glucose 97 Calcium 9.1 Total Bilirubin 0.7 D AST 33 D ALT 41 D Alkaline Phosphatase 132 H Total Protein 6.4 Albumin 2.9 L Active Medications Generic Name Dose Route Start Last Admin Trade Name Freq PRN Reason Stop Dose Admin Artificial Tears 1 drop 06/03/17 23:52 Artificial Tears OU BID PRN DRY EYES Aspirin 81 mg 06/04/17 10:00 06/06/17 11:04 Asa - PO 81 mg DAILY JACLYN Administration Atenolol 25 mg 06/04/17 10:00 06/06/17 11:05 Tenormin - PO 25 mg DAILY JACLYN Administration Atorvastatin Calcium 20 mg 06/03/17 22:00 06/05/17 22:14 Lipitor - PO 20 mg HS JACLYN Administration Baclofen 10 mg 06/03/17 22:00 06/06/17 14:06 Lioresal - PO 10 mg TID JACLYN Administration Budesonide/Formoterol Fumarate 1 puff 06/04/17 10:00 06/06/17 11:05 Symbicort 160/4.5mcg - IH 1 puff BID JACLYN Administration Enoxaparin Sodium 40 mg 06/05/17 10:00 06/06/17 11:05 Lovenox - SQ 40 mg DAILY JACLYN Administration Hydrochlorothiazide 25 mg 06/04/17 10:00 06/06/17 11:04 Hctz - PO 25 mg DAILY JACLYN Administration Nifedipine 30 mg 06/04/17 10:00 06/06/17 11:04 Procardia Xl - PO 30 mg DAILY JACLYN Administration Sertraline HCl 25 mg 06/04/17 10:00 06/06/17 11:06 Zoloft - PO 25 mg DAILY JACLYN Administration Valsartan 320 mg 06/04/17 10:00 06/06/17 11:04 Diovan - PO 320 mg DAILY JACLYN Administration ASSESSMENT/PLAN:
--- NOTE | 2017-06-06 15:07 | CONSULT ---
- Consultation REQUESTING PROVIDER: Arian Diaz - General Surgery CONSULT REQUEST: We have been asked to surgically evaluate this patient for septated gb. PCP: Dr. Enriquez HPI: Called to eros 81 yo female with PMHx noted below. Admitted to [facility] w/ c/o low back pain. Her PMHx significant for moderate to marked central canal stenosis, and L3 compression fracture with bilateral L3 nerve root impingement since 2015. Patient had ABD CT scan 06/04 which identified a small ventral hernia containing small bowel (no obstruction or incarceration), compression fracture of L3 & L5, a septated gallbladder (no inflammatory changes, no pc fluid). Denies n/v/f/c, CP, SOB, MEDINA, flank pain, change in urine. PMHx: HTN, HLD, asthma, multilevel lumbar DDD, moderate to marked central canal stenosis, and L3 compression fracture with bilateral L3 nerve root impingement since 2015 PSHx: Tubal ligation, Hysterectomy, Cataract surgery Home Medications Atenolol [Tenormin -] 25 mg PO DAILY 09/29/15 Atorvastatin Ca [Lipitor] 20 mg PO HS 09/29/15 Baclofen 10 mg PO TID 09/29/15 Fish Oil/Borage/Flax/Om3,6,9 1 [[place] 3-6-9 1,200 mg Softgel] 1,200 mg PO DAILY 09/29/15 Ibuprofen [Motrin -] 400 mg PO TID 09/29/15 Nifedipine [Nifedical Xl] 30 mg PO DAILY 09/29/15 Sennosides [Senna] 8.6 mg PO DAILY 09/29/15 Sertraline HCl 25 mg PO DAILY 09/29/15 Valsartan/Hydrochlorothiazide [Valsartan-Hctz 320-25 mg Tab] 1 each PO DAILY Aspirin [ASA -] 81 mg PO DAILY 06/03/17 Budesonide/Formeterol Fumarate [SYMBICORT 160/4.5mcg -] 1 inh PO BID 06/03/17 Ergocalciferol [Vitamin D2] 50,000 unit PO WEEKLY 06/03/17 Propylene Glycol/Peg 400/Pf [Systane 0.3-0.4% Eye Drops] 1 each OP PRN PRN 06/03 Allergies: PCN ROS: Systems reviewed and considered negative except for what's contained in HPI. PHYSICAL EXAM: GENERAL: Awake, alert, and fully oriented, in no acute distress. HEAD: NC. AT EYES: sclera anicteric, conjunctiva clear. ABD: Soft, NT. ND. Normoactive bowel sounds MUSCULOSKELETAL: No CVA tenderness b/l Last Vital Signs Temp Pulse Resp BP Pulse Ox 98 F 62 16 114/57 98 06/06/17 06:00 06/06/17 06:00 06/06/17 06:00 06/06/17 06:00 06/05/17 21:00 CBC, BMP 06/06/17 06:35 06/06/17 06:35 Hepatic Panel Total Bilirubin 0.7 mg/dL (0.2-1.0) D 06/06/17 06:35 AST 33 U/L (15-37) D 06/06/17 06:35 ALT 41 U/L (12-78) D 06/06/17 06:35 Alkaline Phosphatase 132 U/L (45-117) H 06/06/17 06:35 Albumin 2.9 g/dl (3.4-5.0) L 06/06/17 06:35 Problem List - Problems (1) Back pain Assessment/Plan: Admitted with chronic low back pain secondary to her spinal stenosis, chronic L3 nerve root impingement, L3 & L5 compression fractures. On CT scan, incidental findings of a small ventral hernia containing small bowel (no obstruction or incarceration), and a septated gall bladder. Pain management PRN for the back pain Recommend TLSO brace to be worn while patient oob to chair or ambulating greater than [address] Diaz for: 1. Ventral hernia should she decide to have it repaired electively. 2. Gall bladder should she decide to have it removed electively Above plan discussed with Dr. Diaz and agrees. On behalf of Dr. Diaz, thank you for the opportunity to participate in your patient's care. Code(s): M54.9 - DORSALGIA, UNSPECIFIED Qualifiers: Back pain location: low back pain Chronicity: acute Back pain laterality : midline Sciatica presence: without sciatica Qualified Code(s): M54.5 - Low back pain Visit type - Case Type Case Type: ED Admission - New patient This patient is new to me today: Yes Date on this admission: 06/06/17
--- NOTE | 2017-06-06 15:51 | DS ---
Physical Exam: SUBJECTIVE: Patient seen and examined OBJECTIVE: Patient is currently asymptomatic and denies pain. fearful of getting OOB due to anticipatory pain Will order Tylenol 650mg q6 scheduled Vital Signs Period Temp Pulse Resp BP Sys/High Pulse Ox Last 24 Hr 98 F-98.0 F 60-63 16-18 100-121/57-63 98-98 PHYSICAL EXAM GENERAL: The patient is awake, alert HEAD: Normal with no signs of trauma. EYES: PERRL, extraocular movements intact, sclera anicteric, conjunctiva clear. ENT: Ears normal, nares patent, oropharynx clear without exudates, moist mucous membranes. NECK: Trachea midline, full range of motion, supple. LUNGS: Breath sounds equal, clear to auscultation bilaterally, no wheezes, no crackles, no accessory muscle use. HEART: Regular rate and rhythm, S1, S2 without murmur, rub or gallop. ABDOMEN: Soft, nontender, nondistended, normoactive bowel sounds, no guarding, no rebound, no hepatosplenomegaly, no masses. EXTREMITIES: 2+ pulses, warm, well-perfused, no edema. NEUROLOGICAL: Cranial nerves II through XII grossly intact. Normal speech, gait not observed. PSYCH: Normal mood, normal affect. SKIN: Warm, dry, normal turgor, no rashes or lesions noted. LABS Laboratory Results - last 24 hr 06/06/17 06/06/17 06:35 06:35 WBC 8.5 RBC 3.48 L Hgb 11.0 Hct 33.5 MCV 96.2 H MCH 31.5 MCHC 32.7 RDW 12.8 Plt Count 185 MPV 9.6 Sodium 142 Potassium 3.8 Chloride 106 Carbon Dioxide 28 Anion Gap 8 BUN 24 H Creatinine 0.7 Creat Clearance w eGFR > 60 Random Glucose 97 Calcium 9.1 Total Bilirubin 0.7 D AST 33 D ALT 41 D Alkaline Phosphatase 132 H Total Protein 6.4 Albumin 2.9 L HOSPITAL COURSE: Date of Admission:06/03/17 Date of Discharge: 06/06/17 Patient is an 81 year-old female with a significant past medical history of HTN , HLD, asthma, multilevel lumbar DDD, moderate to marked central canal stenosis , and L3 compression fracture with bilateral L3 nerve root impingement since 2015. She was placed on OBS during this stay for worsening bilateral hip pain and RLE radiculopathy. During hospitalization, there was a concern for possible SIRS criteria a pt WBC was elevated and had low grade fever on 06/03. This has since resolved. Muscular/Skeletal Intractable hip pain MRI shows new L5 compression fracture with old L2-L3 compression fracture with disc herniation Patient has declined surgery and opting for home physical therapy Patient has a 24 hour live in aide that can assist pt on ADLs Tylenol 650mg scheduled for back pain Uses RW with standby assistance and ambulated with PT today but pt hesitated 2/ 2 to anticipatory pain Ambulated 60 feet Leukocytosis SIRS criteria met on admission, resolved CTA negative for PE, negative for DVT WBC now 8.2 CT of abdomen shoes septated GB, ultrasound confirms partial septated gallbladder Surgery saw and evaluated pt, will give outpatient referral follow up with Ast/Alt not elevated Alk phos trending down Cardiology: Hypertension BP at goal continue home meds (atenolol, nifedipine, valsartan, hctz) Hyperlipidemia On Lipitor Pulmonary Asthma history Not in acute exacerbation tolerating room air disposition: full code, Patient faily opting for patient to go home with Pt. This is being set up for d/c tomorrow. Minutes to complete discharge: 60 Discharge Summary Reason For Visit: BACK PAIN Current Active Problems Back pain (Acute) Condition: Stable - Instructions Diet, Activity, Other Instructions: Mrs. Blanco: During a routine cat scan and ultrasound, you were found to have a septated gallblader. Please follow up with Dr. Diaz within 1-2 weeks after you are discharge. Please see your primary care physician within 1 week for follow up. Please call back with any questions that you may have. [facility] [phone] Referrals: Arian Diaz MD [Staff Physician] - Tanner Enriquez MD [Primary Care Provider] - Disposition: HOME - Home Medications Comprehensive Discharge Medication List: Ambulatory Orders Atenolol [Tenormin -] 25 mg PO DAILY 09/29/15 Atorvastatin Ca [Lipitor] 20 mg PO HS 09/29/15 Baclofen 10 mg PO TID 09/29/15 Fish Oil/Borage/Flax/Om3,6,9 1 [[place] 3-6-9 1,200 mg Softgel] 1,200 mg PO DAILY 09/29/15 Ibuprofen [Motrin -] 400 mg PO TID 09/29/15 Nifedipine [Nifedical Xl] 30 mg PO DAILY 09/29/15 Sennosides [Senna] 8.6 mg PO DAILY 09/29/15 Sertraline HCl 25 mg PO DAILY 09/29/15 Valsartan/Hydrochlorothiazide [Valsartan-Hctz 320-25 mg Tab] 1 each PO DAILY Aspirin [ASA -] 81 mg PO DAILY 06/03/17 Budesonide/Formeterol Fumarate [SYMBICORT 160/4.5mcg -] 1 inh PO BID 06/03/17 Ergocalciferol [Vitamin D2] 50,000 unit PO WEEKLY 06/03/17 Propylene Glycol/Peg 400/Pf [Systane 0.3-0.4% Eye Drops] 1 each OP PRN PRN 06/03 This patient is new to me today: Yes Date on this admission: 06/06/17 Emergency Visit: Yes ED Registration Date: 06/03/17 Care time: The patient presented to the Emergency Department on the above date and was hospitalized for further evaluation of their emergent condition. Critical Care patient: No - Discharge Referral Referred to [facility] No
[2017-06-06 17:52] VITALS: BP 120/72; PULSE 67; TEMP 98.7
[2017-06-06] MEDS ORDERED: ACETAMINOPHEN 325 MG TABLET (FP) PO SCH (18:00)
--- NOTE | 2017-06-07 13:24 | EKG ---
Test Reason : Blood Pressure : / mmHG Vent. Rate : 093 BPM Atrial Rate : 093 BPM P-R Int : 242 ms QRS Dur : 068 ms QT Int : 364 ms P-R-T Axes : 066 010 -11 degrees QTc Int : 452 ms SINUS RHYTHM WITH 1ST DEGREE A-V BLOCK POSSIBLE INFERIOR INFARCT (CITED ON OR BEFORE 29-SEP-2015) ABNORMAL ECG WHEN COMPARED WITH ECG OF 29-SEP-2015 19:45, VENT. RATE HAS INCREASED BY 38 BPM CRITERIA FOR ANTERIOR INFARCT ARE NO LONGER PRESENT T WAVE INVERSION NO LONGER EVIDENT IN LATERAL LEADS QT HAS LENGTHENED Confirmed by VISHNU HERNANDEZ, JOSE LUIS ([id number]) on 06/07/2017 1:23:35 PM Referred By: Confirmed By:JOSE LUIS MARES MD
== END 2017-06-06 18:42 | disposition home health service (06) ==
LOC: JER 10:35 → JERBED 14:34 → J8W 06-04 00:02
PROVIDERS: ADMIT Hospitalist; ATTEND Nurse Practitioner Family
PROC: 3E033GC Introduction of Other Therapeutic Substance into Peripheral Vein, Percutaneous Approach (ICD-10-PCS; principal; 2017-06-03)
PROC: 3E013GC Introduction of Other Therapeutic Substance into Subcutaneous Tissue, Percutaneous Approach (ICD-10-PCS; 2017-06-03)
PROC: 3E0F7GC Introduction of Other Therapeutic Substance into Respiratory Tract, Via Natural or Artificial Opening (ICD-10-PCS; 2017-06-03)
DX: M54.5 Low back pain (principal); R65.10 Systemic inflammatory response syndrome (SIRS) of non-infectious origin without acute organ dysfunction; I10 Essential (primary) hypertension; E78.5 Hyperlipidemia, unspecified; J45.909 Unspecified asthma, uncomplicated; R26.2 Difficulty in walking, not elsewhere classified; M51.36 Other intervertebral disc degeneration, lumbar region; R74.8 Abnormal levels of other serum enzymes; M48.56XA Collapsed vertebra, not elsewhere classified, lumbar region, initial encounter for fracture; M25.552 Pain in left hip; M25.551 Pain in right hip; K43.9 Ventral hernia without obstruction or gangrene; M54.16 Radiculopathy, lumbar region; K82.8 Other specified diseases of gallbladder; M48.061 Spinal stenosis, lumbar region without neurogenic claudication; G89.29 Other chronic pain; Z99.89 Dependence on other enabling machines and devices; Z88.0 Allergy status to penicillin; Z79.82 Long term (current) use of aspirin
CPT/HCPCS: 36415; 71010-TC; 71275-TC; 72132-TC; 72158-TC; 72170-TC; 72192-TC; 74177-TC; 76705-TC; 80053; 81003; 82977; 83690; 83735; 84100; 85025; 85027; 85379; 85651; 86140; 87040; 87086; 93005; 93010; 93970-TC; 94640; 96372; 96374; 97116-GP; 97161-GP; 99285-25; C1887; G0378; J0475; J1644